=== PATIENT | female | born 2000 | race Caucasian/White ===

== ENCOUNTER 2023-09-01 19:53 | Emergency (ER) | payer BC, MEDICAID ==
[~2023-09-01] VITALS: Ht 157.5 cm; Wt 70.3 kg
[2023-09-01 20:15] VITALS: BP 108/71; PULSE 79; RESP 17; TEMP 97.7; O2SAT 98
[2023-09-01] MEDS ORDERED: CYCL-711 PO (21:31)
[2023-09-01] MEDS ORDERED: LID5T TP (21:31)
[2023-09-01] MEDS ORDERED: IBUP-2213 PO (21:31)
[2023-09-01] MEDS ORDERED: METH4TAB1 PO (21:31)
[2023-09-01] MEDS: KETOROLAC 30 MG/ML VIAL IM ONE (22:03)
== END 2023-09-01 22:21 | disposition home or self-care (01) ==
LOC: MED 19:53
DX: M54.50 Low back pain, unspecified (principal); Z79.899 Other long term (current) drug therapy
CPT/HCPCS: 81025; 96372; 99283; J1885

== ENCOUNTER 2024-02-24 00:30 | Emergency (ER) | payer BC ==
[~2024-02-24] VITALS: Ht 157.5 cm; Wt 78.0 kg
[~2024-02-24 00:30] MED LIST: CYCL-711 PO; IBUP-2213 PO; LID5T TP; METH4TAB1 PO
[2024-02-24 00:40] VITALS: BP 130/78; PULSE 77; RESP 16; TEMP 98; O2SAT 98; O2SAT 99
[2024-02-24] MEDS: NACL 0.9% 1,000 ML IV ONE ×2 (01:22→03:12)
[2024-02-24 01:40] LABS: BASOPHILS # (AUTO) 0.1 K/uL (0.00-0.22); BASOPHILS % (AUTO) 0.9 % (0.0-2.0); EOSINOPHILS # (AUTO) 0.1 K/uL (0-0.4); EOSINOPHILS % (AUTO) 0.7 % (0.0-4.0); HEMATOCRIT 35.3 % (36-48); HEMOGLOBIN 11.7 g/dL (12.0-16.0); LYMPHOCYTES % (AUTO) 7.5 % (20.5-51.1); MEAN CORPUSCULAR HEMOGLOBIN 28 pg (27-31); MEAN CORPUSCULAR HGB CONC 33 g/dL (33-37); MEAN CORPUSCULAR VOLUME 83.8 fL (80-94); MONOCYTES # (AUTO) 0.4 K/uL (0.8-1.0); MONOCYTES % (AUTO) 3.1 % (1.7-9.3); NEUTROPHILS % (AUTO) 87.8 % (42.2-75.2); PLATELET COUNT (AUTO) 238 K/uL (140-450); RED BLOOD CELL COUNT(AUTO) 4.22 MIL/uL (4.20-5.40); RED CELL DISTRIBUTION WIDTH 14.2 % (11.6-13.7); WHITE BLOOD COUNT (AUTO) 13.7 K/uL (4.8-10.8)
[2024-02-24] MEDS: ONDANSETRON 4 MG/2 ML VIAL IVP ONE (01:53)
[2024-02-24 01:55] LABS: BILIRUBIN,DIRECT 0.1 mg/dL (0.0-0.3); TOTAL BILIRUBIN 0.3 mg/dL (0.0-1.0)
[2024-02-24 01:57] LABS: ANION GAP 9.6 (8-16); CALCIUM 8.7 mg/dL (8.5-10.1); CARBON DIOXIDE 27.3 mmol/L (21-32); CREATININE 0.7 mg/dL (0.6-1.3); POTASSIUM 3.9 mmol/L (3.5-5.1)
[2024-02-24] MEDS: KETOROLAC 30 MG/ML VIAL IVP ONE (02:24)
[2024-02-24 02:53] LABS: APPEARANCE,URINE CLEAR (CLEAR); BILIRUBIN,URINE NEGATIVE (NEGATIVE); BLOOD, URINE TRACE-I (NEGATIVE); COLOR,URINE YELLOW (YELLOW); LEUKOCYTE ESTERASE ,URINE NEGATIVE (NEGATIVE); NITRITE, URINE NEGATIVE (NEGATIVE); PROTEIN,URINE NEGATIVE (NEGATIVE); UGLUCOSE NEGATIVE (NEGATIVE); UROBILINOGEN,URINE 0.2 EU/dL (0.2 - 1)
[2024-02-24 02:56] LABS: BACTERIA,URINE >30 (MANY) /HPF (None Seen); MUCUS,URINE 1+ /LPF (None Seen); RBC,URINE 0-5 /HPF (0-5); SQUAMOUS EPITHELIAL CELL,UR 4-10 (MOD) /LPF (0-3 (FEW)); WBC,URINE 0-5 /HPF (0-5)
[2024-02-24] MEDS ORDERED: ONDA-188 PO (03:33)
[2024-02-24] MEDS ORDERED: BEN10 PO (03:33)
[2024-02-24] MEDS ORDERED: ACET500T99 PO (03:33)
[2024-02-24 04:11] VITALS: BP 102/57; PULSE 61; RESP 16; TEMP 98.1; O2SAT 97
== END 2024-02-24 04:11 | disposition home or self-care (01) ==
LOC: MED 00:30
DX: K52.9 Noninfective gastroenteritis and colitis, unspecified (principal); D72.829 Elevated white blood cell count, unspecified; F12.90 Cannabis use, unspecified, uncomplicated; Z79.899 Other long term (current) drug therapy
CPT/HCPCS: 36415; 80048; 80076; 81001; 81025; 83690; 85025; 87086; 96361; 96374; 96375; 99284; J1885; J2405; J7030

== ENCOUNTER 2024-03-16 00:25 | Emergency (ER) | payer BC ==
[~2024-03-16] VITALS: Ht 157.5 cm; Wt 79.4 kg
[~2024-03-16 00:25] MED LIST changes: +ACET500T99 PO; +BEN10 PO; +ONDA-188 PO
[2024-03-16 00:54] VITALS: BP 96/65; PULSE 90; RESP 18; TEMP 98.5; O2SAT 97
[2024-03-16] MEDS ORDERED: NAPR-337 PO (02:41)
[2024-03-16 02:43] VITALS: BP 96/65; PULSE 90; RESP 18; TEMP 98.5; O2SAT 97
== END 2024-03-16 02:43 | disposition home or self-care (01) ==
LOC: MED 00:25
DX: S83.91XA Sprain of unspecified site of right knee, initial encounter (principal); Z79.899 Other long term (current) drug therapy; W19.XXXA Unspecified fall, initial encounter; Y93.89 Activity, other specified; Y92.89 Other specified places as the place of occurrence of the external cause; Y99.8 Other external cause status
CPT/HCPCS: 73562; 99283; Q0092